=== PATIENT | male | born 1960 | race Hispanic/Latino ===

== ENCOUNTER 2018-01-31 16:30 | Emergency (ER) | payer OTHER | END 2018-01-31 17:26 | disposition home or self-care (01) | LOC: ERS 16:30 | DX: G51.0 Bell's palsy (principal); I88.9 Nonspecific lymphadenitis, unspecified; E78.5 Hyperlipidemia, unspecified; I10 Essential (primary) hypertension; Z87.891 Personal history of nicotine dependence; Z79.899 Other long term (current) drug therapy | CPT/HCPCS: 99283 ==